=== PATIENT | male | born 1965 | race Caucasian/White ===

== ENCOUNTER 2018-05-13 13:43 | Emergency (ER) | payer MEDICARE, MEDICAID, SELFPAY ==
[2018-05-13 13:47] VITALS: BP 106/78; PULSE 58; RESP 16; TEMP 36.7; O2SAT 98
--- NOTE | 2018-05-13 14:10 | ED.GENADUL_ITS ---
Discharge Plan Discharge Details Chief Complaint: Laceration Clinical Impression: Injury of great toe of left foot Primary Care Provider: Nadeem Chavez ED Provider: Mitesh Barnard Disposition Patient Disposition: HOME Home Meds and New Rx's Prescriptions: No Action atenolol 25 mg Tablet 25 mg PO DAILY RF: 0 lisinopril 5 mg Tablet RF: 0 Discharge Instructions Instructions: Nail Avulsion (ED) Additional Instructions: Follow-up with Dr. Chavez for recheck if not improved in 1 week's time. Return or see her nearest provider for fever, redness, discharge from the wound. Keep tape in place for 1 week's time. You will then begin to grow the nail from the germinal matrix of the nail bed. You will lose the current big toe nail. Elevate to reduce pain and swelling. May use Tylenol and/or ibuprofen if needed for discomfort. May apply ice to reduce discomfort. Medical Decision Making MDM Narrative Medical decision making narrative: 52-year-old male who nearly avulsed his left great toenail where he caught the edge of a swimming, without other injury. Tetanus status updated. Do not feel he requires imaging. Nail irrigated and cleansed, stented back in place and taped in position. Discussed with him that I would anticipate normal regrowth of nail over 4-6 weeks time. Discussed with him return precautions per 52-year-old male presents with left great toe injury. He states that approximately 1 hour ago, he stepped into a hole and caught the lip with his left great toenail, avulsing it upwards. He does not injure himself in any other way. He has dull, achy, constant, nonradiating pain at the end of his toe. He is able to walk without difficulty. He states his tetanus status is out of date. He has otherwise recently been well per HPI - General Adult General Date/Time Provider Initiated Documentation: 05/13/18 14:02 . Related Data Home Medications Medication Instructions Recorded Confirmed atenolol 25 mg PO DAILY 05/13/18 05/13/18 lisinopril 05/13/18 Allergies Allergy/AdvReac Type Severity Reaction Status Date / Time aspirin Allergy Hives Unverified 05/13/18 13:52 ibuprofen Allergy Hives Unverified 05/13/18 13:52 General Stated Complaint: Laceration ROWDY: 4 Review of Systems Review of Systems I systems reviewed and otherwise negative [facility] Social History Smoking/Tobacco Use Status: Current every day Exam Const General: cooperative, healthy appearing and comfortable HENMT Head: normal to inspection and normocephalic Eyes General: appearance normal, both eyes and all related structures Chest Chest: normal inspection of the chest Resp Effort & Inspection: normal respiratory effort and able to speak in complete sentences Extrem Right lower extremity: normal to inspection Left lower extremity: abnormal to inspection (The left great toenail was avulsed upwards and attached at the nail base. Appears to be stenting open the germinal matrix. Sensation intact distally. Full range of motion. 2+ DP bilaterally.) Psych Mental Status: mental status grossly normal Speech and Movement: speech and movement normal Course Vital Signs Temperature 36.7 C 05/13/18 13:47 Pulse 58 L 05/13/18 13:47 Respiratory Rate 16 05/13/18 13:47 Blood Pressure 106/78 05/13/18 13:47 Pulse Oximetry 98 05/13/18 13:47 Temperature 36.7 C 05/13/18 13:47 Pulse 58 L 05/13/18 13:47 Respiratory Rate 16 05/13/18 13:47 Blood Pressure 106/78 05/13/18 13:47 Pulse Oximetry 98 05/13/18 13:47
[2018-05-13] MEDS: Tetanus & Diphtheria Tox,ADULT 0.5 ML VIAL IM (14:15)
[2018-05-13 14:37] VITALS: BP 105/74; PULSE 61; RESP 16; TEMP 36.8; O2SAT 98
== END 2018-05-13 14:41 | disposition home or self-care (01) ==
LOC: ER 14:34
PROVIDERS: Emergency Provider Emergency Medicine; PCP Internal Medicine
DX: S91.202A Unspecified open wound of left great toe with damage to nail, initial encounter (principal); W17.2XXA Fall into hole, initial encounter
CPT/HCPCS: 90471; 99284; 99283

== ENCOUNTER 2019-02-07 11:34 | Outpatient (REF) | payer MEDICARE, MEDICAID, SELFPAY ==
[2019-02-08 11:25] LABS: HCT 42.9 % (40.0-50.0); HGB 14.3 g/dL (13.5-17.5); Mean Corp. HGB Concentration 33.3 g/dL (32.0-36.0); Mean Corpuscular Hemoglobin 32.5 pg (27.0-33.0); Mean Corpuscular Volume 97.5 fL (80-95); Mean Platelet Volume 11.5 fL (8.0-11.0); Platelet Count 261 x1000/uL (130-400); RBC Distribution Width 13.9 % (11.8-14.1); White Blood Cell Count 8.33 k/cumm (4.4-10.8)
[2019-02-08 11:58] LABS: ALT 24 U/L (12-78); AST 18 U/L (15-37); Albumin 3.5 g/dL (3.4-5.0); Alkaline Phosphatase 116 U/L (46-116); Anion Gap 9.2 mmol/L (3-11); BUN 19 mg/dL (7-18); Bilirubin, Total 0.2 mg/dL (0.2-1.0); CO2 25.8 mmol/L (21.0-32.0); CREATININE 0.99 mg/dL (0.70-1.30); Calcium 8.9 mg/dL (8.5-10.1); Chloride 103 mmol/L (98-107); Cholesterol 162 mg/dL (50-200); Folate 4.8 ng/mL (8.6-20.0); Glucose 88 mg/dL (70-100); HDL Cholesterol 30 mg/dL (40-60); LDL CHOLESTEROL 105 mg/dL (<100); Potassium 4.3 mmol/L (3.5-5.1); Sodium 138 mmol/L (136-145); Triglyceride 178 mg/dL (30-150)
[2019-02-11 11:24] LABS: HBs Antibody, Qual Negative; HBs Antibody, Quant <3.1 mIU/mL; Hepatitis B Core Antibody Negative (NEGAT); Hepatitis B surface Ag Negative (NEGAT); Hepatitis C Ab w Rflx HCV PCR Negative (NEGAT)
== END 2019-02-07 11:54 ==
LOC: NCHCN 11:34
PROVIDERS: PCP Internal Medicine; Visit Provider Family Medicine
DX: D75.89 Other specified diseases of blood and blood-forming organs (principal); D64.9 Anemia, unspecified; E03.9 Hypothyroidism, unspecified; R74.0 Nonspecific elevation of levels of transaminase and lactic acid dehydrogenase [LDH]; I10 Essential (primary) hypertension; Z11.59 Encounter for screening for other viral diseases
CPT/HCPCS: 80053; 80061; 83721; 85027; 86704; 86706; 86803; 87340; 82746; 84443

== ENCOUNTER 2019-05-28 13:50 | Outpatient (REF) | payer MEDICARE, MEDICAID, SELFPAY ==
[2019-05-28 22:09] LABS: Folate 8.4 ng/mL (8.6-20.0); TSH 11.14 uIU/mL (0.36-3.74)
== END 2019-05-28 14:10 ==
LOC: NCHCN 13:50
PROVIDERS: PCP Family Medicine; Visit Provider Family Medicine
DX: E03.9 Hypothyroidism, unspecified (principal); D64.9 Anemia, unspecified
CPT/HCPCS: 82746; 84443

== ENCOUNTER 2020-01-07 13:14 | Outpatient (REF) | payer MEDICARE, MEDICAID, SELFPAY ==
[2020-01-07 21:16] LABS: HCT 43.7 % (40.0-50.0); HGB 14.3 g/dL (13.5-17.5); Mean Corp. HGB Concentration 32.7 g/dL (32.0-36.0); Mean Corpuscular Volume 94.6 fL (80-95); Mean Platelet Volume 10.6 fL (8.0-11.0); Platelet Count 287 x1000/uL (130-400); RBC 4.62 m/cumm (4.50-6.00); RBC Distribution Width 14.8 % (11.8-14.1); White Blood Cell Count 11.28 k/cumm (4.4-10.8)
[2020-01-07 22:00] LABS: ALT 36 U/L (16-63); AST 25 U/L (15-37); Albumin 3.6 g/dL (3.4-5.0); Alkaline Phosphatase 131 U/L (46-116); Anion Gap 8.1 mmol/L (3-11); BUN 23 mg/dL (7-18); Bilirubin, Total 0.2 mg/dL (0.2-1.0); CO2 28.9 mmol/L (21.0-32.0); CREATININE 1.18 mg/dL (0.70-1.30); Calcium 9.1 mg/dL (8.5-10.1); Calculated LDL 77 mg/dL (<100); Chloride 100 mmol/L (98-107); Cholesterol 157 mg/dL (<200); Folate 4.2 ng/mL (8.6-20.0); Glucose 85 mg/dL (74-106); HDL Cholesterol 29 mg/dL (40-60); Sodium 137 mmol/L (136-145); TSH 2.13 uIU/mL (0.36-3.74); Total Protein 7.2 g/dL (6.4-8.2); Triglyceride 256 mg/dL (<150)
== END 2020-01-07 13:34 ==
LOC: NCHCN 13:14
PROVIDERS: PCP Family Medicine; Visit Provider Family Medicine
DX: E03.9 Hypothyroidism, unspecified (principal); E78.6 Lipoprotein deficiency; R74.0 Nonspecific elevation of levels of transaminase and lactic acid dehydrogenase [LDH]; D52.9 Folate deficiency anemia, unspecified
CPT/HCPCS: 80053; 80061; 85027; 82746; 84443

== ENCOUNTER 2020-09-16 14:38 | Outpatient (REF) | payer MEDICARE, MEDICAID, SELFPAY ==
[2020-09-16 14:19] LABS: ALT 38 U/L (16-63); AST 23 U/L (15-37); Albumin 3.7 g/dL (3.4-5.0); Alkaline Phosphatase 125 U/L (46-116); Anion Gap 8.4 mmol/L (3-11); BUN 22 mg/dL (7-18); Bilirubin, Total 0.4 mg/dL (0.2-1.0); CO2 26.6 mmol/L (21.0-32.0); Calcium 9.2 mg/dL (8.5-10.1); Calculated LDL 87 mg/dL (<100); Chloride 107 mmol/L (98-107); Cholesterol 142 mg/dL (<200); Folate 4.6 ng/mL (8.6-20.0); Glucose 100 mg/dL (74-106); HDL Cholesterol 42 mg/dL (40-60); Sodium 142 mmol/L (136-145); Total Protein 7.3 g/dL (6.4-8.2); Triglyceride 66 mg/dL (<150)
[2020-09-17 09:17] LABS: TSH 3.34 uIU/mL (0.36-3.74)
== END 2020-09-16 14:58 ==
LOC: NCHCN 14:38
PROVIDERS: PCP Family Medicine; Visit Provider Family Medicine
DX: I10 Essential (primary) hypertension (principal); E03.9 Hypothyroidism, unspecified; E78.6 Lipoprotein deficiency; D52.9 Folate deficiency anemia, unspecified; E78.1 Pure hyperglyceridemia; R74.01 Elevation of levels of liver transaminase levels
CPT/HCPCS: 80053; 80061; 82746; 84443

== ENCOUNTER 2022-02-17 07:44 | Outpatient (REF) | payer MEDICARE, MEDICAID, SELFPAY ==
[2022-02-17 15:38] LABS: HCT 44.7 % (40.0-50.0); HGB 15.2 g/dL (13.5-17.5); MCH 32.1 pg (27.0-33.0); MCV 94 fL (80-95); MPV 10.2 fL (8.0-11.0); Platelet Count 236 10^3/uL (130-400); RBC 4.74 10^6/uL (4.36-5.78); RDW 13.2 % (11.8-14.1); RDW-SD 45.2 fL; WBC 9.55 10^3/uL (4.4-10.8)
[2022-02-17 16:17] LABS: ALT 27 U/L (16-63); AST 10 U/L (15-37); Albumin 3.6 g/dL (3.4-5.0); Alkaline Phosphatase 111 U/L (46-116); Anion Gap 9.1 mmol/L (3-11); BUN 21 mg/dL (7-18); Bilirubin, Total 0.4 mg/dL (0.2-1.0); CO2 26.9 mmol/L (21.0-32.0); Calcium 8.9 mg/dL (8.5-10.1); Calculated LDL 79 mg/dL (<100); Chloride 101 mmol/L (98-107); Cholesterol 139 mg/dL (<200); Folate 18.4 ng/mL (8.6-20.0); Glucose 102 mg/dL (74-106); HDL Cholesterol 47 mg/dL (40-60); Potassium 4.3 mmol/L (3.5-5.1); Sodium 137 mmol/L (136-145); TSH 1.17 uIU/mL (0.36-3.74); Triglyceride 69 mg/dL (<150)
== END 2022-02-17 07:45 | disposition home or self-care (01) ==
LOC: NCHCN 07:44
PROVIDERS: PCP Family Medicine; Visit Provider Family Medicine
DX: I10 Essential (primary) hypertension (principal); E78.6 Lipoprotein deficiency; D52.9 Folate deficiency anemia, unspecified
CPT/HCPCS: 80053; 80061; 85027; 82746; 84443

== ENCOUNTER 2023-01-26 12:04 | Outpatient (REF) | payer OTHER, MEDICAID, SELFPAY ==
[2023-01-26 15:38] LABS: ALT 30 U/L (16-63); AST 30 U/L (15-37); Albumin 3.8 g/dL (3.4-5.0); Alkaline Phosphatase 129 U/L (46-116); Anion Gap 8.1 mmol/L (3-11); BUN 14 mg/dL (7-18); Bilirubin, Total 0.2 mg/dL (0.2-1.0); CO2 26.9 mmol/L (21.0-32.0); CREATININE 1.2 mg/dL (0.70-1.30); Calcium 9.3 mg/dL (8.5-10.1); Calculated LDL 79 mg/dL (<100); Chloride 104 mmol/L (98-107); Cholesterol 148 mg/dL (<200); Estimated GFR 70.53 (mL/min/1.73m2); Folate 19.6 ng/mL (8.6-20.0); Glucose 104 mg/dL (74-106); HDL Cholesterol 55 mg/dL (40-60); Potassium 4.6 mmol/L (3.5-5.1); Sodium 139 mmol/L (136-145); Total Protein 7.7 g/dL (6.4-8.2); Triglyceride 71 mg/dL (<150)
== END 2023-01-26 12:05 | disposition home or self-care (01) ==
LOC: NCHCN 12:04
PROVIDERS: PCP Family Medicine; Visit Provider Family Medicine
DX: D52.9 Folate deficiency anemia, unspecified (principal); I10 Essential (primary) hypertension; E03.9 Hypothyroidism, unspecified; E78.6 Lipoprotein deficiency
CPT/HCPCS: 80053; 80061; 82746; 84443

== ENCOUNTER 2024-08-20 16:12 | Outpatient (REF) | payer OTHER, MEDICAID, SELFPAY ==
[2024-08-20 21:35] LABS: Abs Immature Grans 0.02 10^3/uL (0.0-0.06); Absolute Basophil Count 0.03 10^3/uL (0.0-0.2); Absolute Eosinophil Count 0.35 10^3/uL (0.0-0.7); Absolute Lymphocyte Count 3.41 10^3/uL (1.2-3.4); Absolute Monocyte Count 0.86 10^3/uL (0.1-0.8); Absolute Neutrophil Count 4.99 10^3/uL (1.2-6.7); Basophils % 0.3 %; Eosinophils % 3.6 %; HCT 41.9 % (40.0-50.0); HGB 14.1 g/dL (13.5-17.5); Immature Grans % 0.2 %; Lymphocytes % 35.3 %; MCH 31.3 pg (27.0-33.0); MCHC 33.7 % (32.0-36.0); MCV 93 fL (80-95); MPV 10.5 fL (8.0-11.0); Monocytes % 8.9 %; Neutrophils % 51.7 %; Platelet Count 228 10^3/uL (130-400); RDW 13.1 % (11.8-14.1); RDW-SD 44.8 fL; WBC 9.66 10^3/uL (4.4-10.8)
[2024-08-20 21:59] LABS: Anion Gap 8.5 mmol/L (3-11); BUN 14 mg/dL (7-18); CO2 25.5 mmol/L (21.0-32.0); CREATININE 1.1 mg/dL (0.70-1.30); Chloride 105 mmol/L (98-107); Estimated GFR 77.33 (mL/min/1.73m2); Glucose 100 mg/dL (74-106); Potassium 3.7 mmol/L (3.5-5.1); Sodium 139 mmol/L (136-145); TSH 3.34 uIU/mL (0.36-3.74)
[2024-08-20 22:04] LABS: Calcium 8.5 mg/dL (8.5-10.1)
== END 2024-08-20 16:13 | disposition home or self-care (01) ==
LOC: NCHCN 16:12
PROVIDERS: PCP Family Medicine; Visit Provider Family Medicine
DX: I10 Essential (primary) hypertension (principal)
CPT/HCPCS: 80048; 84443; 85025